=== PATIENT | female | born 1940 | race Caucasian/White ===

== ENCOUNTER → 2020-05-16 | Outpatient (CLI) | payer MEDICARE, OTHER ==
[~2020-05-16] MED LIST: ASCO500T20 PO; ASP81TEC PO; CALC-787 PO; CHOL10003 PO; FLINTSTONE1 TAB.CHE4 PO; FLUT16SP22 NSEACH; LORA10TA2 PO; METO-272 PO; METO100T5 PO; NF-ESOM40C PO; OMEG1CAP51 PO; RANI25TA PO; SIMV40TA4 PO; SPIR25TA3 PO; TELM80TA3 PO
--- NOTE | 2020-05-16 12:45 | Diagnostic Imaging Report ---
INDICATION: Pain in the right 3rd finger. TIME OF EXAM: 11:09 AM. TECHNIQUE: Three views of the right 3rd finger were obtained. FINDINGS: There are degenerative changes at the DIP joint of the 3rd finger. The phalanges are intact. No fractures are seen. The third metacarpal is unremarkable. The soft tissues are unremarkable. IMPRESSION: Degenerative changes. No acute bony abnormality is detected. Dictated by: Dictated on workstation # [id number]
== END ==
LOC: RAD FS 11:02
PROVIDERS: ATTEND Nurse Practitioner
DX: M19.041 Primary osteoarthritis, right hand (principal)
CPT/HCPCS: 73140

== ENCOUNTER → 2020-12-14 | Outpatient (CLI) | payer MEDICARE, OTHER ==
[~2020-12-14] MED LIST changes: +CATHETER FLUSH 10 ML SYR IV PRN; +HOLD METFORMIN - RECEIVED CONTRAST 20 ML VIAL IV SCH; +IOHEXOL 350 MG/ML 100 ML (OMNIPAQUE 350) VIAL IV ONE; +NS 100 ML (IVPB) BAG IV ONE
[2020-12-14 07:55] LABS: BUN/CREATININE RATIO 18; CALCIUM 9.6 MG/DL (8.5-10.1); CARBON DIOXIDE 28 MMOL/L (21-32); CHLORIDE 104 MMOL/L (98-107); CREATININE SERUM 0.87 MG/DL (0.60-1.30); GFR ESTIMATED > 60; GLUCOSE 92 MG/DL (70-105); POTASSIUM 4.1 MMOL/L (3.6-5.0); SODIUM 141 MMOL/L (135-145)
--- NOTE | 2020-12-14 09:57 | Diagnostic Imaging Report ---
PROCEDURE: CT abdomen and pelvis with and without contrast. TECHNIQUE: Precontrast acquisitions were acquired through the abdomen and pelvis. Multiple contiguous axial images were obtained through the abdomen and pelvis after the administration of intravenous contrast. Auto Exposure Controls were utilized during the CT exam to meet ALARA standards for radiation dose reduction. INDICATION: Urinary tract infections. COMPARISON: There are no prior studies available for comparison. FINDINGS: There is no evidence for nephrolithiasis or urolithiasis and the kidneys do not appear to be obstructed. There is excretion of the contrast by both kidneys. There is no evidence for a solid renal mass but there does appear to be a 2.6 x 3.0 cm benign-appearing cyst along the superior pole of the right kidney. There is no abnormal enhancement of the kidneys to suggest pyelonephritis. The liver does not appear to be enlarged. There are several small cysts in the dome of the liver. The largest of these cysts measures 1.6 cm. The liver is otherwise unremarkable. The spleen, pancreas, adrenals, gallbladder, aorta, inferior vena cava, and portal vein show no evidence for an acute abnormality. The stomach is not well-distended and consequently difficult to assess. There is diverticulosis of the sigmoid colon but there is no sign of acute diverticulitis. The uterus is surgically absent. The urinary bladder is grossly unremarkable. The appendix was not well visualized but there are no indirect signs of acute appendicitis. The bone windows show no sign of a fracture or of a destructive lesion. The lung bases are clear. IMPRESSION: 1. There is no evidence for a solid renal mass or for an acute abnormality of either kidney. There is no sign of nephrolithiasis either. 2. There is no acute abnormality of the abdomen or pelvis. 3. There is diverticulosis of the sigmoid colon without evidence for acute diverticulitis. Dictated by: Dictated on workstation # [id number]
== END ==
LOC: RAD 08:15
PROVIDERS: ATTEND Nurse Practitioner Family
DX: K57.30 Diverticulosis of large intestine without perforation or abscess without bleeding (principal); N39.0 Urinary tract infection, site not specified
CPT/HCPCS: 36415; 74178; 80048

== ENCOUNTER 2021-01-29 02:42 | Emergency (ER) | payer MEDICARE, OTHER ==
[~2021-01-29] VITALS: Ht 162.5 cm; Wt 76.2 kg
[~2021-01-29 02:42] MED LIST changes: -CATHETER FLUSH 10 ML SYR IV PRN; -HOLD METFORMIN - RECEIVED CONTRAST 20 ML VIAL IV SCH; -IOHEXOL 350 MG/ML 100 ML (OMNIPAQUE 350) VIAL IV ONE; -NS 100 ML (IVPB) BAG IV ONE
--- NOTE | 2021-01-29 02:51 | ED Cardiac General ---
History of Present Illness General Stated Complaint: CHEST PAIN History of Present Illness Date Seen by Provider: Jan 29, 2021 Time Seen by Provider: 02:51 Initial Comments 80-year-old female presents with some epigastric substernal chest tightness. Patient reports that when she went to bed she was having hard time going to sleep and then when she got to sleep she was having a lot of bad dreams and may be some night terrors. She states that she awoke from her sleep and had some "tightness or pressure in her substernal chest area some mild shortness of breath. Patient does have a history of reflux and GI issues. She does not have any real chest pain, there is no radiation of the pain. She denies any fevers chills or any other systemic complaints. Allergies and Home Medications Allergies Uncoded Allergies: SINUS MEDICATIONS (Allergy, Unknown, 12/14/20) Home Medications Ascorbic Acid 500 Mg Tablet, 500 MG PO DAILY, (Reported) Aspirin 81 Mg Tabec, 81 MG PO DAILY, (Reported) Calcium Citrate/Vitamin D3 1 Each Tablet, 600 MG PO DAILY, (Reported) Cholecalciferol 1,000 Unit Tablet, 1,000 UNIT PO DAILY, (Reported) Fluticasone Propionate 16 Gm Naspr, 1 SPRAY NSEACH DAILY PRN, (Reported) ALLERGY SYMPTOMS Loratadine 10 Mg Tablet, 10 MG PO DAILY PRN, (Reported) ALLERGY SYMPTOMS Metoprolol Succinate 100 Mg Tab.sr.24h, 100 MG PO DAILY, (Reported) Multivitamins W-Iron 1 Tab.chew Tab.chew, 2 TAB.CHEW PO DAILY, (Reported) [place]-3 Fatty Acids/Fish Oil 1 Each Capsule, 1,000 MG PO DAILY, (Reported) Simvastatin 40 Mg Tablet, 40 MG PO HS, (Reported) Telmisartan 80 Mg Tablet, 80 MG PO HS, (Reported) Patient Home Medication List Home Medication List Reviewed: Yes Review of Systems Review of Systems Constitutional: No chills, No fever Respiratory: Denies Cough; Shortness of Air Cardiovascular: See HPI; Denies Edema, Denies Irregular Heart Rate, Denies Lightheadedness Gastrointestinal: See HPI; Denies Abdominal Pain, Denies Diarrhea, Denies Nausea, Denies Vomiting Genitourinary: No Symptoms Reported Musculoskeletal: no symptoms reported Skin: no symptoms reported Psychiatric/Neurological: No Symptoms Reported Endocrine: No Symptoms Reported Hematologic/Lymphatic: No Symptoms Reported Past Mgzhhok-Vshrzd-Mkdhsh Hx Past Med/Social Hx: Reviewed Nursing Past Med/Soc Hx Immunizations Up To Date Date of Pneumonia Vaccine: Aug 06, 2008 Date of Influenza Vaccine: Sep 16, 2012 Past Medical History Reproductive Disorders: No Physical Exam Vital Signs Vital Signs - First Documented 01/29/21 02:44 Temp 36.9 Pulse 62 Resp 15 B/P (MAP) 193/91 (125) Pulse Ox 96 O2 Delivery Room Air Capillary Refill : Height, Weight, BMI Height: '" Weight: 150lbs. oz. kg; BMI Method: General Appearance: No Apparent Distress, WD/WN HEENT: PERRL/EOMI Neck: Normal Inspection, Non Tender Respiratory: Lungs Clear, Normal Breath Sounds Cardiovascular: No Edema, Normal Peripheral Pulses, Bradycardia Gastrointestinal: Non Tender, Soft Extremity: Normal Capillary Refill, Normal Inspection Neurologic/Psychiatric: Alert, Oriented x3, No Motor/Sensory Deficits, Normal Mood/Affect, residential care officer II-XII Norm as Tested Progress/Results/Core Measures Results/Orders Lab Results Laboratory Tests Test 01/29/21 03:04 01/29/21 04:50 Range/Units White Blood Count 7.3 4.3-11.0 10^3/uL Red Blood Count 3.93 L 4.35-5.85 10^6/uL Hemoglobin 11.2 L 11.5-16.0 G/DL Hematocrit 36 35-52 % Mean Corpuscular Volume 90 80-99 FL Mean Corpuscular Hemoglobin 28 25-34 PG Mean Corpuscular Hemoglobin Concent 32 32-36 G/DL Red Cell Distribution Width 15.2 H 10.0-14.5 % Platelet Count 210 130-400 10^3/uL Mean Platelet Volume 9.6 7.4-10.4 FL Neutrophils (%) (Auto) 61 42-75 % Lymphocytes (%) (Auto) 26 12-44 % Monocytes (%) (Auto) 9 0-12 % Eosinophils (%) (Auto) 4 0-10 % Basophils (%) (Auto) 1 0-10 % Neutrophils # (Auto) 4.4 1.8-7.8 X 10^3 Lymphocytes # (Auto) 1.9 1.0-4.0 X 10^3 Monocytes # (Auto) 0.7 0.0-1.0 X 10^3 Eosinophils # (Auto) 0.3 0.0-0.3 10^3/uL Basophils # (Auto) 0.0 0.0-0.1 10^3/uL Prothrombin Time 12.5 12.2-14.7 SEC INR Comment 0.9 0.8-1.4 Activated Partial Thromboplast Time 29 24-35 SEC Sodium Level 137 135-145 MMOL/L Potassium Level 4.2 3.6-5.0 MMOL/L Chloride Level 102 98-107 MMOL/L Carbon Dioxide Level 25 21-32 MMOL/L Anion Gap 10 5-14 MMOL/L Blood Urea Nitrogen 18 7-18 MG/DL Creatinine 1.06 0.60-1.30 MG/DL Estimat Glomerular Filtration Rate 50 BUN/Creatinine Ratio 17 Glucose Level 99 70-105 MG/DL Calcium Level 9.5 8.5-10.1 MG/DL Corrected Calcium 9.4 8.5-10.1 MG/DL Magnesium Level 2.0 1.6-2.4 MG/DL Total Bilirubin 0.3 0.1-1.0 MG/DL Aspartate Amino Transf (AST/SGOT) 24 5-34 U/L Alanine Aminotransferase (ALT/SGPT) 21 0-55 U/L Alkaline Phosphatase 135 40-136 U/L Myoglobin 38.8 10.0-92.0 NG/ML Troponin I < 0.30 < 0.30 <0.30 NG/ML Pro-B-Type Natriuretic Peptide 338.2 H <75.0 PG/ML Total Protein 7.2 6.4-8.2 GM/DL Albumin 4.1 3.2-4.5 GM/DL My Orders Orders - MARTINEZ,YESSENIA L DO Cbc With Automated Diff (01/29/21 02:53) Magnesium (01/29/21 02:53) Chest 1 View Ap/Pa Only (01/29/21 02:53) Ekg Tracing (01/29/21 02:53) Comprehensive Metabolic Panel (01/29/21 02:53) Myoglobin Serum (01/29/21 02:53) Protime With Inr (01/29/21 02:53) Partial Thromboplastin Time (01/29/21 02:53) Monitor-Rhythm Ecg Trace Only (01/29/21 02:53) Lipid Panel (01/30/21 06:00) Aspirin Chewable Tablet (Baby Aspirin Ch (01/29/21 03:00) Ed Iv/Invasive Line Start (01/29/21 02:53) Troponin I Fs (01/29/21 02:53) Probnp Fs (01/29/21 02:53) Famotidine Injection (Pepcid Injection) (01/29/21 02:57) Troponin I Fs (01/29/21 05:00) Troponin I Fs (01/29/21 04:56) Medications Given in ED Current Medications Medications Dose Ordered Sig/Maureen Route Start Time Stop Time Status Last Admin Dose Admin Aspirin 324 mg ONCE ONCE PO 01/29/21 03:00 01/29/21 03:01 DC 01/29/21 03:12 324 MG Vital Signs/I&O 01/29/21 01/29/21 02:44 02:44 Temp 36.9 Pulse 62 Resp 15 B/P (MAP) 193/91 (125) Pulse Ox 96 O2 Delivery Room Air Room Air Progress Progress Note : Time: 05:39 Progress Note Patient's chest patient symptoms completely resolved following the famotidine. And it was a combination of some mild reflux along with likely a reaction such as like sleep apnea due to the night terrors. Patient with negative EKG, negative troponin x2. Patient stable and discharged home. I recommend she follow-up with her ledger clerk next week. Initial ECG Impression Date: Jan 29, 2021 Initial ECG Impression Time: 02:48 Initial ECG Rhythm: S.Alexis Initial ECG Intervals: MN (226) Initial ECG Impression: Nonspecific Changes Comment Sinus bradycardia, mildly prolonged MN interval. Nonspecific change, no acute findings Departure Impression Primary Impression: Chest pain Qualified Codes: R07.89 - Other chest pain Additional Impression: Gastroesophageal reflux disease Qualified Codes: K21.9 - Gastro-esophageal reflux disease without esophagitis Disposition: 01 HOME, SELF-CARE Condition: Stable Departure-Patient Inst. Referrals: [facility]/ (PCP) Primary Care Physician PENNY CROOK APRN (Family) Primary Care Physician Patient Instructions: Chest Pain That Is Not Caused by the Heart (DC), Acid Reflux and GERD in Adults (DC) Add. Discharge Instructions: Follow-up with your primary care provider this week and ledger clerk this week if possible. YESSENIA MARTINEZ DO Jan 29, 2021 02:51
[2021-01-29] MEDS ORDERED: FAMOTIDINE 20MG/2ML IV (PEPCID) IV STA (02:57)
[2021-01-29] MEDS ORDERED: ASPIRIN 81 MG CHEW (CHILDREN'S ASA) PO ONE (03:00)
[2021-01-29 03:26] LABS: BASOPHILS % (AUTO) 1 % (0-10); EOSINOPHILS # (AUTO) 0.3 10^3/uL (0.0-0.3); EOSINOPHILS % (AUTO) 4 % (0-10); HEMATOCRIT 36 % (35-52); HEMOGLOBIN 11.2 G/DL (11.5-16.0); LYMPHOCYTES # (AUTO) 1.9 X 10^3 (1.0-4.0); LYMPHOCYTES % (AUTO) 26 % (12-44); MEAN CORPUSCULAR HEMOGLOBIN 28 PG (25-34); MEAN CORPUSCULAR HGB CONC 32 G/DL (32-36); MEAN CORPUSCULAR VOLUME 90 FL (80-99); MEAN PLATELET VOLUME 9.6 FL (7.4-10.4); MONOCYTES # (AUTO) 0.7 X 10^3 (0.0-1.0); MONOCYTES % (AUTO) 9 % (0-12); NEUTROPHILS # (AUTO) 4.4 X 10^3 (1.8-7.8); NEUTROPHILS % (AUTO) 61 % (42-75); PLATELET COUNT 210 10^3/uL (130-400); WHITE BLOOD COUNT 7.3 10^3/uL (4.3-11.0)
[2021-01-29 03:50] LABS: BILIRUBIN,TOTAL 0.3 MG/DL (0.1-1.0); CALCIUM 9.5 MG/DL (8.5-10.1); CREATININE SERUM 1.06 MG/DL (0.60-1.30); POTASSIUM 4.2 MMOL/L (3.6-5.0); TOTAL PROTEIN 7.2 GM/DL (6.4-8.2)
[2021-01-29 03:51] LABS: ALBUMIN 4.1 GM/DL (3.2-4.5)
[2021-01-29 03:57] LABS: INR 0.9 (0.8-1.4); PROTHROMBIN TIME PATIENT 12.5 SEC (12.2-14.7)
[2021-01-29 05:44] VITALS: BP 148/55
--- NOTE | 2021-01-29 06:35 | Diagnostic Imaging Report ---
Indication: Chest pain. Comparison: 05/28/2013. Discussion: Single portable upright view of the chest was obtained. Mild cardiomegaly is new. No khadra failure. Mildly elevated right hemidiaphragm is stable. No consolidation, pleural fluid, or pneumothorax. No osseous abnormality. Impression: 1. Mild cardiomegaly without failure. Dictated by: Dictated on workstation # [id number]
== END 2021-01-29 05:44 | disposition home or self-care (01) ==
LOC: EDUNIT# 02:42 → ER FS 02:45
DX: R07.9 Chest pain, unspecified (principal); K21.9 Gastro-esophageal reflux disease without esophagitis; Z88.8 Allergy status to other drugs, medicaments and biological substances; Z79.82 Long term (current) use of aspirin
CPT/HCPCS: 36415; 71045; 80053; 83735; 83874; 83880; 84484; 85025; 85610; 85730; 93005; 93041

== ENCOUNTER 2021-03-01 12:54 | Emergency (ER) | payer MEDICARE, OTHER ==
[~2021-03-01] VITALS: Ht 162 cm; Wt 79.0 kg
--- NOTE | 2021-03-01 13:13 | ED General ---
General Chief Complaint: General Problems/Pain Stated Complaint: GEN WEAKNESS/PAIN Source of Information: Patient History of Present Illness Date Seen by Provider: Mar 01, 2021 Time Seen by Provider: 13:00 Initial Comments Patient is an 80-year-old female who presents with generalized weakness. She has day 13 of Covid. She denies fever chills, nausea vomiting or sweats. She reports mild dizziness while standing and generalized weakness. She does not have chest pain palpitation shortness of breath. She denies leg pain swelling or cramping. She denies urinary frequency urgency or dysuria. No other acute symptoms or complaints. Timing/Duration: 4-5 Days Severity: Mild Modifying Factors: improves with Other Allergies and Home Medications Allergies Uncoded Allergies: SINUS MEDICATIONS (Allergy, Unknown, 12/14/20) Home Medications Ascorbic Acid 500 Mg Tablet, 500 MG PO DAILY, (Reported) Aspirin 81 Mg Tabec, 81 MG PO DAILY, (Reported) Calcium Citrate/Vitamin D3 1 Each Tablet, 600 MG PO DAILY, (Reported) Cholecalciferol 1,000 Unit Tablet, 1,000 UNIT PO DAILY, (Reported) Fluticasone Propionate 16 Gm Naspr, 1 SPRAY NSEACH DAILY PRN, (Reported) ALLERGY SYMPTOMS Loratadine 10 Mg Tablet, 10 MG PO DAILY PRN, (Reported) ALLERGY SYMPTOMS Metoprolol Succinate 100 Mg Tab.sr.24h, 100 MG PO DAILY, (Reported) Multivitamins W-Iron 1 Tab.chew Tab.chew, 2 TAB.CHEW PO DAILY, (Reported) [place]-3 Fatty Acids/Fish Oil 1 Each Capsule, 1,000 MG PO DAILY, (Reported) Simvastatin 40 Mg Tablet, 40 MG PO HS, (Reported) Telmisartan 80 Mg Tablet, 80 MG PO HS, (Reported) Patient Home Medication List Home Medication List Reviewed: Yes Review of Systems Review of Systems Constitutional: see HPI EENTM: see HPI Respiratory: see HPI Cardiovascular: see HPI Gastrointestinal: see HPI Musculoskeletal: see HPI Skin: see HPI Psychiatric/Neurological: See HPI Hematologic/Lymphatic: See HPI Immunological/Allergic: see HPI All Other Systems Reviewed Negative Unless Noted: Yes Past Sjiwtbz-Cnjqjy-Rxjkqy Hx Patient Social History Alcohol Use: Denies Use Smoking Status: Never a Smoker Immunizations Up To Date Date of Pneumonia Vaccine: Aug 06, 2008 Date of Influenza Vaccine: Sep 16, 2012 Past Medical History Surgeries: Yes Coronary Stent Respiratory: No Cardiac: Yes Hypertension, Irregular Heartbeat Neurological: No Reproductive Disorders: No Sexually Transmitted Disease: No Genitourinary: No Gastrointestinal: No Musculoskeletal: Yes Arthritis Endocrine: No HEENT: No Cancer: No Psychosocial: No Blood Disorders: No Physical Exam Vital Signs Vital Signs - First Documented 03/01/21 13:05 Temp 36.5 Pulse 60 Resp 18 B/P (MAP) 109/57 (74) Pulse Ox 96 O2 Delivery Room Air Capillary Refill : Height, Weight, BMI Height: '" Weight: 150lbs. oz. kg; 28.00 BMI Method: General Appearance: Other Eyes: Bilateral Eye Normal Inspection, Bilateral Eye PERRL, Bilateral Eye EOMI HEENT: PERRL/EOMI Neck: Non Tender, Supple Respiratory: Lungs Clear Cardiovascular: No Gallop Gastrointestinal: Non Tender, Soft Back: Normal Inspection, No CVA Tenderness Neurologic/Psychiatric: Alert, Oriented x3 Progress/Results/Core Measures Suspected Sepsis SIRS Temperature: Pulse: Respiratory Rate: Laboratory Tests 03/01/21 13:05: White Blood Count 6.0 Blood Pressure / Mean: Laboratory Tests 03/01/21 13:05: Creatinine 1.01, Platelet Count 178, Total Bilirubin 0.3 Results/Orders Lab Results Laboratory Tests Test 03/01/21 13:05 03/01/21 15:00 Range/Units White Blood Count 6.0 4.3-11.0 10^3/uL Red Blood Count 4.12 L 4.35-5.85 10^6/uL Hemoglobin 11.6 11.5-16.0 G/DL Hematocrit 35 35-52 % Mean Corpuscular Volume 86 80-99 FL Mean Corpuscular Hemoglobin 28 25-34 PG Mean Corpuscular Hemoglobin Concent 33 32-36 G/DL Red Cell Distribution Width 15.0 H 10.0-14.5 % Platelet Count 178 130-400 10^3/uL Mean Platelet Volume 9.8 7.4-10.4 FL Immature Granulocyte % (Auto) 0 % Neutrophils (%) (Auto) 71 42-75 % Lymphocytes (%) (Auto) 19 12-44 % Monocytes (%) (Auto) 9 0-12 % Eosinophils (%) (Auto) 1 0-10 % Basophils (%) (Auto) 0 0-10 % Neutrophils # (Auto) 4.3 1.8-7.8 X 10^3 Lymphocytes # (Auto) 1.2 1.0-4.0 X 10^3 Monocytes # (Auto) 0.5 0.0-1.0 X 10^3 Eosinophils # (Auto) 0.0 0.0-0.3 10^3/uL Basophils # (Auto) 0.0 0.0-0.1 10^3/uL Immature Granulocyte # (Auto) 0.0 0.0-0.1 10^3/uL Sodium Level 132 L 135-145 MMOL/L Potassium Level 4.1 3.6-5.0 MMOL/L Chloride Level 98 98-107 MMOL/L Carbon Dioxide Level 22 21-32 MMOL/L Anion Gap 12 5-14 MMOL/L Blood Urea Nitrogen 20 H 7-18 MG/DL Creatinine 1.01 0.60-1.30 MG/DL Estimat Glomerular Filtration Rate 52 BUN/Creatinine Ratio 20 Glucose Level 140 H 70-105 MG/DL Calcium Level 8.9 8.5-10.1 MG/DL Corrected Calcium 9.0 8.5-10.1 MG/DL Total Bilirubin 0.3 0.1-1.0 MG/DL Aspartate Amino Transf (AST/SGOT) 20 5-34 U/L Alanine Aminotransferase (ALT/SGPT) 14 0-55 U/L Alkaline Phosphatase 129 40-136 U/L Troponin I < 0.30 <0.30 NG/ML Pro-B-Type Natriuretic Peptide 395.6 H <75.0 PG/ML Total Protein 7.0 6.4-8.2 GM/DL Albumin 3.9 3.2-4.5 GM/DL Urine Color YELLOW Urine Clarity CLOUDY Urine pH 6.0 5-9 Urine Specific [place] <=1.005 1.016-1.022 Urine Protein NEGATIVE NEGATIVE Urine Glucose (UA) NEGATIVE NEGATIVE Urine Ketones NEGATIVE NEGATIVE Urine Nitrite POSITIVE H NEGATIVE Urine Bilirubin NEGATIVE NEGATIVE Urine Urobilinogen 0.2 < = 1.0 MG/DL Urine Leukocyte Esterase 2+ H NEGATIVE Urine RBC (Auto) TRACE H NEGATIVE Urine RBC 5-10 H /HPF Urine WBC >100 H /HPF Urine Squamous Epithelial Cells 5-10 /HPF Urine Crystals NONE /LPF Urine Bacteria LARGE H /HPF Urine Casts NONE /LPF Urine Mucus NEGATIVE /LPF Urine Culture Indicated YES My Orders Orders - RIVAS KILGORE DO Cbc With Automated Diff (03/01/21 13:08) Comprehensive Metabolic Panel (03/01/21 13:08) Urinalysis (03/01/21 13:08) Ekg-Prn For Chest Pain Or Rhyt (03/01/21 13:08) Troponin I Fs (03/01/21 13:08) Probnp Fs (03/01/21 13:08) Ns Iv 1000 Ml (Sodium Chloride 0.9%) (03/01/21 13:15) Urine Culture (03/01/21 15:00) Ceftriaxone For Iv Use (Rocephin For I (03/01/21 15:30) Vital Signs/I&O 03/01/21 03/01/21 13:05 13:39 Temp 36.5 Pulse 60 59 65 67 Resp 18 B/P (MAP) 109/57 (74) 109/57 (74) 96/58 (71) 92/53 (66) Pulse Ox 96 O2 Delivery Room Air Capillary Refill : Departure Communication (Admissions) EKG: Sinus rhythm Labs reviewed. Patient mildly hypotensive in symptomatic with standing. No IV fluids and antibiotics given for treatment of urinary tract infection. Vital signs remained stable. We will continue therapeutic care with PCP follow-up. Return precautions reviewed. Patient verbalizes understanding agreement discharge instructions. Return precautions reviewed. Impression Primary Impression: Orthostatic dizziness Additional Impression: Urinary tract infection Disposition: 01 HOME, SELF-CARE Condition: Stable Departure-Patient Inst. Referrals: [facility]/ (PCP) Primary Care Physician PENNY CROOK APRN (Family) Primary Care Physician Patient Instructions: Urinary Tract Infection, Adult ED, Dizziness, Adult ED Add. Discharge Instructions: You were evaluated in the emergency department for generalized weakness. Please increase daily fluid intake and complete full course of antibiotics prescribed. Follow-up with your PCP in 3 to 5 days for reevaluation. Return to the ED if new or worsening symptoms. All discharge instructions reviewed with patient and/or family. Voiced understanding. Scripts Cephalexin (Cephalexin) 500 Mg Tablet 500 MG PO BID, #10 TAB Prov: KILGORERIVAS WASSERMAN 03/01/21 RIVAS KILGORE DO Mar 01, 2021 13:13
[2021-03-01] MEDS ORDERED: NS IV 1000 ML 1,000 ML IV SCH (13:15)
[2021-03-01 13:17] LABS: HEMATOCRIT 35 % (35-52); HEMOGLOBIN 11.6 G/DL (11.5-16.0); MEAN CORPUSCULAR HEMOGLOBIN 28 PG (25-34)
[2021-03-01 13:18] LABS: LYMPHOCYTES % (AUTO) 19 % (12-44); MEAN CORPUSCULAR HGB CONC 33 G/DL (32-36); MEAN CORPUSCULAR VOLUME 86 FL (80-99); MEAN PLATELET VOLUME 9.8 FL (7.4-10.4); MONOCYTES % (AUTO) 9 % (0-12); NEUTROPHILS % (AUTO) 71 % (42-75); PLATELET COUNT 178 10^3/uL (130-400)
[2021-03-01 13:19] LABS: BASOPHILS % (AUTO) 0 % (0-10); EOSINOPHILS % (AUTO) 1 % (0-10); LYMPHOCYTES # (AUTO) 1.2 X 10^3 (1.0-4.0); MONOCYTES # (AUTO) 0.5 X 10^3 (0.0-1.0); NEUTROPHILS # (AUTO) 4.3 X 10^3 (1.8-7.8)
[2021-03-01 13:39] VITALS: BP_SYST 109; BP_SYST 92; BP_SYST 96; BP_DIAS 53; BP_DIAS 57; BP_DIAS 58
[2021-03-01 13:48] LABS: CARBON DIOXIDE 22 MMOL/L (21-32); CHLORIDE 98 MMOL/L (98-107); POTASSIUM 4.1 MMOL/L (3.6-5.0); SODIUM 132 MMOL/L (135-145)
[2021-03-01 13:49] LABS: ALANINE AMINOTRANSFERASE 14 U/L (0-55); ALKALINE PHOSPHATASE 129 U/L (40-136); BILIRUBIN,TOTAL 0.3 MG/DL (0.1-1.0); BUN/CREATININE RATIO 20; CALCIUM 8.9 MG/DL (8.5-10.1); CREATININE SERUM 1.01 MG/DL (0.60-1.30); GFR ESTIMATED 52; GLUCOSE 140 MG/DL (70-105)
[2021-03-01 13:50] LABS: ALBUMIN 3.9 GM/DL (3.2-4.5)
[2021-03-01 15:15] LABS: BILIRUBIN,URINE NEGATIVE (NEGATIVE); CLARITY,URINE CLOUDY; COLOR,URINE YELLOW; GLUCOSE, URINE (UA) NEGATIVE (NEGATIVE); KETONES,URINE NEGATIVE (NEGATIVE); NITRITE,URINE POSITIVE (NEGATIVE); PROTEIN,URINE NEGATIVE (NEGATIVE)
[2021-03-01 15:16] LABS: BACTERIA,URINE LARGE /HPF; LEUKOCYTE ESTERASE ,URINE 2+ (NEGATIVE); WBC,URINE >100 /HPF
[2021-03-01] MEDS ORDERED: cefTRIAXone FOR IV USE 1,000 MG in WATER (STERILE) FOR INJECTION 10 ML IV ONE (15:30)
[2021-03-01] MEDS ORDERED: CEPH500T PO (15:34)
[2021-03-01 15:38] VITALS: BP 106/43
== END 2021-03-01 15:40 | disposition home or self-care (01) ==
LOC: EDUNIT# 12:54 → ER FS 12:57
DX: I95.1 Orthostatic hypotension (principal); N39.0 Urinary tract infection, site not specified; U07.1 COVID-19; I10 Essential (primary) hypertension; Z73.0 Burn-out; Z95.5 Presence of coronary angioplasty implant and graft; Z79.82 Long term (current) use of aspirin; Z79.51 Long term (current) use of inhaled steroids
CPT/HCPCS: 36415; 80053; 81000; 83880; 84484; 85025; 87088; 93005

== ENCOUNTER 2021-03-26 18:16 | Emergency (ER) | payer MEDICARE, OTHER ==
[~2021-03-26] VITALS: Ht 162 cm; Wt 79.0 kg
[~2021-03-26 18:16] MED LIST changes: +CEPH500T PO
[2021-03-26] MEDS ORDERED: OXYMETAZOLINE (AFRIN) 0.05% NA 30 ML BTL ONE (18:20)
[2021-03-26] MEDS ORDERED: ACETAMINOPHEN 500 MG TAB (TYLENOL) PO ONE (18:30)
[2021-03-26] MEDS ORDERED: TETANUS,DIPTH,PERTUSS P/F (BOOSTRIX) 0.5 ML VIAL IM ONE (18:30)
--- NOTE | 2021-03-26 18:36 | ED General ---
General Chief Complaint: Head/Cervical Problems Stated Complaint: NOSE/RIGHT EYE INJ History of Present Illness Date Seen by Provider: Mar 26, 2021 Time Seen by Provider: 18:31 Initial Comments Patient presenting to emergency department for evaluation of head injury as she was bent over and her dog that weighs approximately 50 pounds came and hit her in the face and she fell forward to the ground. She denies losing consciousness but says that she has a headache primarily in her right periorbital region and right temporal region. She says that she was afraid she was in a pass out so she crawled back to her house. Patient has a nosebleed from her left nostril and her tetanus status is unknown. She has pain in her face and her head and minimally in her neck as well but she denies any chest abdomen back or extremity pain denies any weakness numbness tingling or vision changes. She says she takes an 81 mg aspirin daily but no other blood thinners. She is in no obvious distress with normal vital signs except for hypertension noted. Allergies and Home Medications Allergies Uncoded Allergies: SINUS MEDICATIONS (Allergy, Unknown, 12/14/20) Home Medications Ascorbic Acid 500 Mg Tablet, 500 MG PO DAILY, (Reported) Aspirin 81 Mg Tabec, 81 MG PO DAILY, (Reported) Calcium Citrate/Vitamin D3 1 Each Tablet, 600 MG PO DAILY, (Reported) Cephalexin 500 Mg Tablet, 500 MG PO BID Prescribed by: RIVAS KILGORE on 03/01/21 1534 Cholecalciferol 1,000 Unit Tablet, 1,000 UNIT PO DAILY, (Reported) Fluticasone Propionate 16 Gm Naspr, 1 SPRAY NSEACH DAILY PRN, (Reported) ALLERGY SYMPTOMS Loratadine 10 Mg Tablet, 10 MG PO DAILY PRN, (Reported) ALLERGY SYMPTOMS Metoprolol Succinate 100 Mg Tab.sr.24h, 100 MG PO DAILY, (Reported) Multivitamins W-Iron 1 Tab.chew Tab.chew, 2 TAB.CHEW PO DAILY, (Reported) [place]-3 Fatty Acids/Fish Oil 1 Each Capsule, 1,000 MG PO DAILY, (Reported) Simvastatin 40 Mg Tablet, 40 MG PO HS, (Reported) Telmisartan 80 Mg Tablet, 80 MG PO HS, (Reported) Patient Home Medication List Home Medication List Reviewed: Yes Review of Systems Review of Systems Constitutional: no symptoms reported EENTM: epistaxis Respiratory: no symptoms reported Cardiovascular: no symptoms reported Gastrointestinal: no symptoms reported Musculoskeletal: no symptoms reported Skin: no symptoms reported Psychiatric/Neurological: Headache All Other Systems Reviewed Negative Unless Noted: Yes Past Xrlmokh-Uavofg-Svnmer Hx Immunizations Up To Date Date of Pneumonia Vaccine: Aug 06, 2008 Date of Influenza Vaccine: Sep 16, 2012 Past Medical History Surgeries: Yes Coronary Stent Respiratory: No Cardiac: Yes Hypertension, Irregular Heartbeat Neurological: No Reproductive Disorders: No Sexually Transmitted Disease: No Genitourinary: No Gastrointestinal: No Musculoskeletal: Yes Arthritis Endocrine: No HEENT: No Cancer: No Psychosocial: No Blood Disorders: No Physical Exam Vital Signs Capillary Refill : Height, Weight, BMI Height: '" Weight: 150lbs. oz. kg; 30.00 BMI Method: General Appearance: No Apparent Distress, WD/WN HEENT: PERRL/EOMI, TMs Normal, Other (L nostril bleeding noted. Appears to be multiple anterior sources) Neck: Supple, Tender Midline Respiratory: Lungs Clear, No Respiratory Distress Cardiovascular: Regular Rate, Rhythm Gastrointestinal: Non Tender, Soft Extremity: Normal Capillary Refill Neurologic/Psychiatric: Alert, Oriented x3, No Motor/Sensory Deficits Skin: Warm/Dry, Other (R periorbital contusion) Progress/Results/Core Measures Suspected Sepsis SIRS Temperature: Pulse: Respiratory Rate: Blood Pressure / Mean: Results/Orders My Orders Orders - IZABEL SHAH DO Ct Head Wo (03/26/21 18:23) Ct Maxillofacial Wo (03/26/21 18:23) Oxymetazoline 0.05% Nasal [place] (Afrin 0. (03/26/21 21:00) Dipht,Pertuss(Acell),Tet Adult (Boostrix (03/26/21 18:30) Ct Head/Face/Cervical Wo (03/26/21 18:23) Oxymetazoline 0.05% Nasal [place] (Afrin 0. (03/26/21 18:20) Acetaminophen Tablet (Tylenol Tablet) (03/26/21 18:30) Vital Signs/I&O Capillary Refill : Progress Note : Progress Note No vision changes and her eye exam is unremarkable. Given the left epistaxis a Rhino Rocket was placed which controlled the bleeding. Patient may have concussion symptoms so I told her to take Tylenol for pain and she could also take ibuprofen as well. She was told to drink plenty of fluids and follow-up with her primary care provider and ENT within 2 to 3 days for recheck. Patient has benign initial and repeat neurologic exam and she appears well so she will be discharged in stable condition with Keflex for prophylaxis with the Rhino Rocket in place. Patient is aware and agreeable with plan for discharge and verbalized understanding of the need for short-term follow-up and strict ED return precautions discussed include worsening pain neurologic changes with general concerns. Departure Impression Primary Impression: Epistaxis due to trauma Additional Impressions: Periorbital contusion of right eye CHI (closed head injury) Disposition: HOME, SELF-CARE Condition: Stable Departure-Patient Inst. Referrals: [facility] (PCP) Primary Care Physician PENNY CROOK APRN (Family) Primary Care Physician Patient Instructions: Concussion, Adult ED, Nosebleeds Add. Discharge Instructions: See ENT in 2 days to have nose re-examined. Take Tylenol and Ibuprofen for pa in. Drink plenty of fluids. Come back to the ED with worsening pain, neurological changes or other general concerns. Thank you! All discharge instructions reviewed with patient and/or family. Voiced understanding. Scripts Cephalexin (Cephalexin) 500 Mg Tablet 500 MG PO BID for 5 Days, TAB Prov: IZABEL SHAH DO 03/26/21 IZABEL SHAH DO Mar 26, 2021 18:36
[2021-03-26] MEDS ORDERED: CEPH500T PO (18:37)
--- NOTE | 2021-03-26 19:43 | Diagnostic Imaging Report ---
PROCEDURE: CT head, face, and cervical spine without contrast. TECHNIQUE: Multiple contiguous axial images were obtained through the head, neck, and facial bones without the use of intravenous contrast. Sagittal and coronal reformations through the cervical spine and facial bones were also performed. Auto Exposure Controls were utilized during the CT exam to meet ALARA standards for radiation dose reduction. INDICATION: Injury with pain. Right eye bruising. Left nares bleeding. FINDINGS: CT head: There is no hemorrhage, hydrocephalus, edema, mass, mass effect or evidence for elevated intracerebral pressures. There is no abnormal extra-axial fluid collection. The ventricles are nondilated. There are intracranial atherosclerotic vascular calcifications. The cerebrocortical volume is normal. There is no significant atrophy. The calvarium appears nonacute. There is no mastoid effusion. There is no pneumocephalus. CT cervical spine: cervical body heights are maintained. The alignment is within normal limits. There is no fracture or facet joint dislocation. No substantial canal stenosis. No paraspinal mass, hemorrhage or fluid collection. Structures of the larynx and thyroid cartilage, as well as hyoid bone, appear intact. The prevertebral and retropharyngeal spaces normal. CT facial bones: There is a fracture, mildly displaced, of the left nasal bone. Right nasal bone appears intact. There is leftward directed nasal septal spurring and deviation but no septal fracture deformity identified the anterior maxillary spine is intact. The mandible is intact. The zygomatic arches are normal. No bony dislocation to the temporomandibular joints. The mastoid air cells, external auditory canal and middle ear cavities appear normal. The sphenoid sinuses are clear. The maxillary sinus chu are intact. There is no maxillary sinus blood. There is a fracture of the medial right orbit at the lamina papyracea with fragment depression. Maximal 3.9 mm. The medial rectus and remaining extraocular muscles show no intramuscular hematoma or evidence for entrapment. There is no intraconal post septal or retrobulbar hematoma. There is no proptosis. The globe morphologies and densities appear symmetric and normal. There is right greater than left preseptal periorbital soft tissue swelling. The orbital floors, roofs and rims appear intact and the lateral bony orbit appears intact. The zygomatic arches are intact. Pterygoid plates intact and the bony maxillary is intact. IMPRESSION: 1. CT maxillofacial: Left nasal bone fracture and medial right orbital fracture without proptosis or hemosinus. Deviated and spurred nasal septum without evidence for septal fracture. The remaining facial bones are intact. 2. CT head: No intracerebral hemorrhage or acute brain pathology. 3. Cervical spine: Negative. Dictated by: Dictated on workstation # [id number]
[2021-03-26] MEDS ORDERED: L.AC1CAP6 PO (20:52)
[2021-03-26] MEDS ORDERED: AMOX-358 PO (20:52)
[2021-03-26] MEDS ORDERED: ACHD5005 PO (20:52)
[2021-03-26 20:56] VITALS: BP 164/98
[2021-03-26] MEDS ORDERED: OXYMETAZOLINE (AFRIN) 0.05% NA 30 ML BTL SCH (21:00)
== END 2021-03-26 20:56 | disposition home or self-care (01) ==
LOC: EDUNIT# 18:16 → ER FS 18:19
DX: S05.11XA Contusion of eyeball and orbital tissues, right eye, initial encounter (principal); S09.90XA Unspecified injury of head, initial encounter; R04.0 Epistaxis; I10 Essential (primary) hypertension; Z88.8 Allergy status to other drugs, medicaments and biological substances; Z23 Encounter for immunization; Z79.82 Long term (current) use of aspirin; Z79.899 Other long term (current) drug therapy; W22.8XXA Striking against or struck by other objects, initial encounter
CPT/HCPCS: 30901; 70450; 70486; 72125; 90715